=== PATIENT | male | born 1985 | race Caucasian/White ===

== ENCOUNTER 2016-09-15 13:29 | Emergency (ER) | payer OTHER | END 2016-09-15 16:02 | disposition home or self-care (01) | LOC: FER 13:29 | DX: S01.112A Laceration without foreign body of left eyelid and periocular area, initial encounter (principal); W22.8XXA Striking against or struck by other objects, initial encounter; Y92.009 Unspecified place in unspecified non-institutional (private) residence as the place of occurrence of the external cause ==